=== PATIENT | male | born 1940 | race Caucasian/White ===

== ENCOUNTER → 2017-03-10 | Outpatient (CLI) | payer OTHER ==
[~2017-03-10] MED LIST: ADULT LOW DOSE81 MG PO; ALDACTONE25 MG PO; ALLOPURINOL 10100 M1 PO; ALLOPURINOL 10100 M2 PO; ASA81BEC PO; ATORVASTATIN CA10 MG PO; CARVEDILOL12.5 MG PO; CARVEDILOL6.25 MG PO; COREG6.25 MG PO; CORLANOR5 MG PO; DEMADEX20 MG PO; DIOVAN160 MG PO; ENTRESTO 24 MG1 EACH PO; HYDROCHLOROTHIA25 M1 PO; LASIX 40 MG TAB40 M2 PO; LIPITOR10 MG PO; PACERONE 200 M200 M1 PO; PREDNISONE 20 M20 M1 PO; PROCARDIA XL30 MG PO; ZETIA10 MG PO
[2017-03-10 09:55] LABS: CALCIUM 9.8 mg/dL (8.5-10.1); CREATININE 2.8 mg/dL (0.7-1.3); POTASSIUM 4.2 mmol/L (3.5-5.1)
== END ==
LOC: CAT 09:02
PROVIDERS: Internal Medicine Cardiovascular Disease
DX: Z01.812 Encounter for preprocedural laboratory examination (principal); I71.4 Abdominal aortic aneurysm, without rupture

== ENCOUNTER → 2017-10-27 | Outpatient (CLI) | payer OTHER ==
[2017-10-27 14:32] VITALS: BP 144/80
== END ==
LOC: SEN 14:11
DX: M54.9 Dorsalgia, unspecified (principal)

== ENCOUNTER → 2017-10-27 | Outpatient (CLI) | payer OTHER | LOC: RAD 15:07 | DX: M47.897 Other spondylosis, lumbosacral region (principal); M51.36 Other intervertebral disc degeneration, lumbar region ==

== ENCOUNTER → 2017-11-10 | Outpatient (CLI) | payer OTHER ==
[2017-11-10 13:11] VITALS: BP 134/73
== END ==
LOC: SEN 11:46
DX: Z09 Encounter for follow-up examination after completed treatment for conditions other than malignant neoplasm (principal); I10 Essential (primary) hypertension; E78.5 Hyperlipidemia, unspecified; I25.5 Ischemic cardiomyopathy

== ENCOUNTER → 2017-11-17 | Outpatient (CLI) | payer OTHER | LOC: RAD 13:00 | DX: M47.894 Other spondylosis, thoracic region (principal); M41.86 Other forms of scoliosis, lumbar region; M41.84 Other forms of scoliosis, thoracic region; M51.37 Other intervertebral disc degeneration, lumbosacral region; M51.36 Other intervertebral disc degeneration, lumbar region; N28.1 Cyst of kidney, acquired; I71.4 Abdominal aortic aneurysm, without rupture ==

== ENCOUNTER → 2017-11-24 | Outpatient (CLI) | payer OTHER ==
[2017-11-24 13:08] VITALS: BP 155/87
== END ==
LOC: SEN 09:02
DX: N28.89 Other specified disorders of kidney and ureter (principal); M54.5 Low back pain; I10 Essential (primary) hypertension; E78.5 Hyperlipidemia, unspecified; I25.5 Ischemic cardiomyopathy

== ENCOUNTER 2019-03-27 09:30 | Emergency (ER) | payer OTHER ==
[~2019-03-27] VITALS: Ht 167 cm; Wt 70.3 kg
[2019-03-27 09:56] LABS: URINE BILIRUBIN NEGATIVE (Negative); URINE BLOOD 1+ (Negative); URINE CLARITY CLEAR; URINE COLOR YELLOW; URINE GLUCOSE-RANDOM* NEGATIVE (Negative); URINE KETONES NEGATIVE (Negative); URINE LEUKOCYTES-REFLEX TRACE (Negative); URINE NITRITE-REFLEX NEGATIVE (Negative); URINE PROTEIN (DIPSTICK) 2+ (Negative); URINE SPECIFIC GRAVITY 1.025 (1.005-1.035); URINE UROBILINOGEN 0.2 E.U./dl (0.2-1.0)
[2019-03-27 10:04] LABS: HEMATOCRIT 40.4 % (42.0-52.0); HEMOGLOBIN 13.3 gm/dL (14.0-18.0); MCH 30.1 pg (26.0-34.0); MCV 91.2 fL (80.0-100.0); RBC 4.42 mil/uL (4.50-6.00); RDW 16.1 % (10.5-14.5)
[2019-03-27 10:04] LABS: BACTERIA-REFLEX 1-9 Few /HPF (None Seen); CASTS None Seen /LPF (None Seen); CRYSTALS None Seen /LPF (None Seen); SQUAMOUS 0-3 Few /LPF (0-3); URINE RBC 3-10 Few /HPF (0-2); URINE WBC-REFLEX 0-5 Rare /HPF (0-5)
[2019-03-27 10:15] LABS: CALCIUM 9.9 mg/dL (8.5-10.1); CREATININE 2.9 mg/dL (0.7-1.3); POTASSIUM 4.3 mmol/L (3.5-5.1)
[2019-03-27 10:20] LABS: TOTAL BILIRUBIN 0.6 mg/dL (<0.1-1.0); TOTAL PROTEIN 7.5 g/dL (6.4-8.2)
[2019-03-27] MEDS ORDERED: ZOFRAN ODT4 MG PO (11:02)
[2019-03-27 11:15] VITALS: BP 134/57
== END 2019-03-27 11:16 | disposition home or self-care (01) ==
LOC: ER 09:30
PROVIDERS: Student in an Organized Health Care Education/Training Program
DX: K44.9 Diaphragmatic hernia without obstruction or gangrene (principal); K52.9 Noninfective gastroenteritis and colitis, unspecified; I25.2 Old myocardial infarction; E78.5 Hyperlipidemia, unspecified; M10.9 Gout, unspecified; I12.9 Hypertensive chronic kidney disease with stage 1 through stage 4 chronic kidney disease, or unspecified chronic kidney disease; N18.9 Chronic kidney disease, unspecified; Z95.0 Presence of cardiac pacemaker; Z98.890 Other specified postprocedural states; Z90.49 Acquired absence of other specified parts of digestive tract; Z95.2 Presence of prosthetic heart valve; Z88.6 Allergy status to analgesic agent; Z88.5 Allergy status to narcotic agent

== ENCOUNTER → 2019-12-08 | Outpatient (CLI) | payer OTHER ==
[~2019-12-08] MED LIST changes: +BENICAR40 MG PO; +COREG3.125 MG PO; +FLOMAX0.4 MG PO; +LIPITOR40 MG PO; +SUPER THERAVIT1 EACH PO; +ZOFRAN ODT4 MG PO
== END ==
LOC: SJCVCIMAG 07:40
PROVIDERS: ATTEND Internal Medicine Cardiovascular Disease
DX: I44.0 Atrioventricular block, first degree (principal); R01.1 Cardiac murmur, unspecified; N28.1 Cyst of kidney, acquired; N20.0 Calculus of kidney; I65.23 Occlusion and stenosis of bilateral carotid arteries; I49.3 Ventricular premature depolarization; I25.10 Atherosclerotic heart disease of native coronary artery without angina pectoris; I10 Essential (primary) hypertension; I25.5 Ischemic cardiomyopathy; E78.2 Mixed hyperlipidemia; I47.2 Ventricular tachycardia; I77.4 Celiac artery compression syndrome; I73.9 Peripheral vascular disease, unspecified; Z95.810 Presence of automatic (implantable) cardiac defibrillator; Z79.899 Other long term (current) drug therapy; Z87.891 Personal history of nicotine dependence; Z95.828 Presence of other vascular implants and grafts; Z79.82 Long term (current) use of aspirin; Z98.890 Other specified postprocedural states

== ENCOUNTER 2019-12-15 07:56 | Observation (INO) | payer OTHER ==
[~2019-12-15] VITALS: Ht 167.6 cm; Wt 70.8 kg
[~2019-12-15 07:56] MED LIST changes: -BENICAR40 MG PO; -COREG3.125 MG PO; -FLOMAX0.4 MG PO; -LIPITOR40 MG PO; -SUPER THERAVIT1 EACH PO
[2019-12-15 09:07] VITALS: BP 158/80
[2019-12-15] MEDS ORDERED: LIPITOR40 MG PO (09:13)
[2019-12-15] MEDS ORDERED: BENICAR40 MG PO (09:15)
[2019-12-15] MEDS ORDERED: COREG3.125 MG PO (09:16)
[2019-12-15] MEDS ORDERED: FLOMAX0.4 MG PO (09:17)
[2019-12-15] MEDS ORDERED: SUPER THERAVIT1 EACH PO (09:18)
--- NOTE | 2019-12-15 14:01 | EKG ---
[facility] [place] [address] ELECTROCARDIOGRAM REPORT Name: JARETT CASTILLO [id number] Admission: 12/15/19 Attend Phys: Merlin Shaw MD, Discharge: Date of : 44 Report #: [id number] THIS REPORT FOR: cc: Maximiliano Schultz MD, Neal A. MD Couchonnal, Luis F. MD ~ THIS REPORT FOR: //name// [facility] Test Date: 2019-12-15 Test Time: 09:28:21 Pat Name: JARETT CASTILLO Department: Room: Gender: Application Support Technician: [facility] : 1940 Requested By: Merlin Shaw Order Number: [id number] MD: Uzair Mccoy Measurements Intervals Pillow Rate: 47 P: 47 WI: 261 QRS: -26 QRSD: 110 T: 178 QT: 446 QTc: 395 Interpretive Statements Sinus bradycardia Prolonged WI interval Incomplete left bundle branch block Inferior infarct, old Compared to ECG 04/28/2016 13:20:37 Electronically Signed On 12-15-2019 13:59:32 CDT by Uzair Mccoy [email or web address] <ELECTRONICALLY SIGNED> By: Uzair Mccoy MD 12/15/19 1359 7 7 Uzair Mccoy MD /EPI
[2019-12-15 15:12] VITALS: BP 130/68
--- NOTE | 2019-12-15 16:21 | NUR ---
[age] YEAR OLD MALE ADMITTED TO CCU FOR OBSEVATION AFTER CARDIAC PROCEDURE THIS MORNING. VSS. RIGHT GROIN SITE SOFT C/D/I. PT DENIES PAIN/SOA. PT TOLERATED SNACK THIS AFTERNOON. PLAN FOR DISCHARGE AT 1800 TONIGHT.
--- NOTE | 2019-12-16 16:39 | CATHLAB ---
[facility] [place] [address] INVASIVE PROCEDURE REPORT Name: JARETT CASTILLO Room #: 215-P [facility] Donovan Hammer#: [id number] Admission: 12/15/19 Attend Phys: Merlin Shaw MD, Discharge: 12/15/19 Date of : 44 Report #: [id number] THIS REPORT FOR: cc: Maximiliano Schultz MD, Neal A. MD Mancuso, Gerald M. MD [facility] ~ APPROVED REPORT Study performed: 12/15/2019 13:33:15 Patient Details Patient Status: Out-Patient Room #: The patient is a 79 year-old male Event Personnel Merlin Shaw Vertical Punch Operator, Donita Green RN RN, Tiara Campos RTR, POULTRY FARMWORK[employer] Monitor, William Monreal RTR Scrub Procedures Performed Art Access - R femoral artery* Alexander Access - R femoral vein Right and Left Heart Cath w/or w/o Coronarie [id number] RLHC Renal Bilateral Peripheral Angiography [id number] CVRENALBIL Hemostasis w/ Mynx Hemostasis with Manual pressure 78114 Initial Mod Sed Same Phys/QHP Gr5y 583975 20813 Mod Sed Same Phys/QHP Ea 702994 Indication Positive stress test, Chest pain Procedure Narrative The Right Groin^ was infiltrated with 1% Lidocaine subcutaneous anesthesia. A PINNACLE 6FR Sheath #[id number] sheath was inserted into the RFA. Coronary angiography was performed using coronary diagnostic catheters. The right coronary system was accessed and visualized with a JR4 catheter. The left coronary system was accessed and visualized with a JL4 catheter. The left ventricle was accessed and visualized with a PIGTAIL catheter. Left ventricular/Aortic Valve gradient assessed via catheter pullback. Left ventriculogram was performed in 30 degree projection. Closure device was deployed with a 6 Fr MYNX CONTROL 6F/7F L#[id number]. Hemostasis was obtained with manual pressure following sheath removal without any complications. The patient tolerated the procedure well and there were no complications associated with the procedure. There was no hematoma. [facility] [address] [place] [address] INVASIVE PROCEDURE REPORT Name: JARETT CASTILLO Room #: 215-P [facility] IN ..#: [id number] Admission: 12/15/19 Attend Phys: Merlin Shaw, Discharge: 12/15/19 Date of : 44 Report #: [id number] Intraoperative Conscious Sedation Sedation start time: 14:00 Case end Time: 14:46 Fentanyl 50 mcg Versed 2 mg Fluoro Time: 3.58 minutes Dose: DAP 3754.30 cGycm2 373 mGy Contrast Type and Amount: Visipaque 65 ml Hemodynamics The right atrial mean pressure is 8 mmHg. The right ventricular pressure is 40/2 mmHg. The pulmonary artery pressure is 39/10 mmHg with a mean of 24 mmHg. The mean pulmonary capillary wedge pressure is 10 mmHg. The aortic pressure is 157/66 mmHg with a mean of 96 mmHg. The left ventricular pressure is 151/8 mmHg with a mean of mmHg. The left ventricular end diastolic pressure is 16 mmHg. The cardiac output using thermo method is 6.15 L/min. The cardiac index using thermo method is 3.41 L/min/m2. Conclusion #1. Successful right heart catheterization with cardiac output by thermodilution. See above hemodynamics. #2 normal left jugular size with mild global hypokinesis 1-2+ mitral regurgitation EF 45% #3 complex distal left main stenosis approaching 50% involving the ostium of the LAD and mildly diseased circumflex ostium. #4 LAD with an ostial lesion of 50 to 60% just off of the left main which is moderately diseased proximal calcification otherwise patency to the apex. #5 circumflex OM moderate size with mild irregularities there is the ostial knee lesion of 40 to 50% #6 dominant right coronary with significant calcification proximal disease 30 to 40% mid distal in-stent restenosis of 60 to 65% preserved flow in a relatively small PDA #7 selective injection of left renal artery above stent graft mildly diseased brisk flow #8 selective injection of right renal artery above aortic stent graft 50% ostial disease brisk flow Recommendations and plan: Patient has complex distal left main trifurcation disease. All in the 50 to 60% range but brisk flow. Patient relatively asymptomatic. Other comorbidities do exist. [facility] [address] [place] [address] INVASIVE PROCEDURE REPORT Name: JARETT CASTILLO TO Room #: 215-P DIS IN M.R.#: [id number] Admission: 12/15/19 Attend Phys: Merlin Shaw, Discharge: 12/15/19 Date of : 44 Report #: [id number] Continue to treat aggressive medical therapy with close follow-up. This has been discussed with the patient and . <ELECTRONICALLY SIGNED> By: Merlin Shaw MD, FACC 12/16/19 163 36 36 Merlin Shaw MD, FACC /INF
== END 2019-12-15 18:22 | disposition home or self-care (01) ==
LOC: CATH 07:56 → 2N 15:22
PROVIDERS: ADMIT Internal Medicine Cardiovascular Disease
DX: I25.10 Atherosclerotic heart disease of native coronary artery without angina pectoris (principal); I25.5 Ischemic cardiomyopathy; I10 Essential (primary) hypertension; E78.2 Mixed hyperlipidemia; I47.2 Ventricular tachycardia; I73.9 Peripheral vascular disease, unspecified; I65.23 Occlusion and stenosis of bilateral carotid arteries; Z95.810 Presence of automatic (implantable) cardiac defibrillator; R07.9 Chest pain, unspecified; R06.02 Shortness of breath; N28.9 Disorder of kidney and ureter, unspecified; R94.39 Abnormal result of other cardiovascular function study; Z98.890 Other specified postprocedural states; Z90.49 Acquired absence of other specified parts of digestive tract; Z82.49 Family history of ischemic heart disease and other diseases of the circulatory system

== ENCOUNTER → 2020-07-05 | Outpatient (CLI) | payer OTHER ==
[~2020-07-05] MED LIST changes: +BENICAR40 MG PO; +COREG3.125 MG PO; +FLOMAX0.4 MG PO; +LIPITOR40 MG PO; +SUPER THERAVIT1 EACH PO
== END ==
LOC: SJCVC 13:39
PROVIDERS: ATTEND Internal Medicine Cardiovascular Disease
DX: I25.10 Atherosclerotic heart disease of native coronary artery without angina pectoris (principal); R93.1 Abnormal findings on diagnostic imaging of heart and coronary circulation; I48.91 Unspecified atrial fibrillation; I49.49 Other premature depolarization; I47.2 Ventricular tachycardia; I73.9 Peripheral vascular disease, unspecified; I25.5 Ischemic cardiomyopathy; I65.23 Occlusion and stenosis of bilateral carotid arteries; I71.4 Abdominal aortic aneurysm, without rupture; E78.00 Pure hypercholesterolemia, unspecified; I10 Essential (primary) hypertension; E78.5 Hyperlipidemia, unspecified; Z95.5 Presence of coronary angioplasty implant and graft; Z95.810 Presence of automatic (implantable) cardiac defibrillator; Z79.899 Other long term (current) drug therapy; Z87.891 Personal history of nicotine dependence

== ENCOUNTER → 2020-10-11 | Outpatient (CLI) | payer OTHER ==
[~2020-10-11] VITALS: Ht 167.6 cm; Wt 72.1 kg
[~2020-10-11] MED LIST changes: +ALLOPURINOL 10100 M3 PO; +NORVASC 2.5 MG2.5 M1 PO
[2020-10-11 13:12] VITALS: BP 129/73
--- NOTE | 2020-10-11 14:03 | NUR ---
Pain Clinic Assessment: 1. History of Osteoarthritis: BILATERAL HIPS History of Rheumatoid Arthritis: DENIES 2. Height: 5 ft. 6 in. 167.6 cm. Weight: 159.0 lb. oz. 72.122 kg. Patient's BMI: 25.7 3. Vital Signs: BP: 129/73 Pulse: 58 Resp: 14 Temp: 02 Sat: 98 ECG Mon: 4. Pain Intensity: 8 5. Fall Risk: Dizziness: N Needs help standing or walking: N Fallen in the last 3 months: N Fall risk comments: 6. Patient on Blood Thinner: None 7. History of Hypertension: Y 8. Opioid Therapy greater than 6 weeks: N Opiate Contract Signed: 9. Risk Assessment Tool Provided: LOW-3 10. Functional Assessment Tool: 11. Recreational Drug Use: Never Drug Type: Tobacco Use: Former Smoker Tobacco Type: Amount or Packs/day: How Many Years: 50 Alcohol Use: No Frequency: Quant:
== END | disposition home or self-care (01) ==
LOC: PAIN 07:14
PROVIDERS: ATTEND Anesthesiology Pain Medicine
DX: G58.0 Intercostal neuropathy (principal); E78.5 Hyperlipidemia, unspecified; I25.10 Atherosclerotic heart disease of native coronary artery without angina pectoris; M10.9 Gout, unspecified; I73.9 Peripheral vascular disease, unspecified; I13.0 Hypertensive heart and chronic kidney disease with heart failure and stage 1 through stage 4 chronic kidney disease, or unspecified chronic kidney disease; N18.9 Chronic kidney disease, unspecified; I50.20 Unspecified systolic (congestive) heart failure; Z98.890 Other specified postprocedural states; Z79.899 Other long term (current) drug therapy; Z87.891 Personal history of nicotine dependence; Z90.49 Acquired absence of other specified parts of digestive tract

== ENCOUNTER → 2021-01-09 | Outpatient (CLI) | payer OTHER | LOC: SJCVCIMAG 09:23 | PROVIDERS: ATTEND Internal Medicine Cardiovascular Disease | DX: R94.31 Abnormal electrocardiogram [ECG] [EKG] (principal); I08.0 Rheumatic disorders of both mitral and aortic valves; I49.3 Ventricular premature depolarization; R00.1 Bradycardia, unspecified; I25.10 Atherosclerotic heart disease of native coronary artery without angina pectoris; I11.0 Hypertensive heart disease with heart failure; I50.9 Heart failure, unspecified; I73.9 Peripheral vascular disease, unspecified; I65.23 Occlusion and stenosis of bilateral carotid arteries; E78.00 Pure hypercholesterolemia, unspecified; M10.9 Gout, unspecified; Z95.810 Presence of automatic (implantable) cardiac defibrillator; Z79.899 Other long term (current) drug therapy; Z79.82 Long term (current) use of aspirin; Z87.891 Personal history of nicotine dependence; Z88.6 Allergy status to analgesic agent ==